=== PATIENT | male | born 1960 | race African-American/Black ===

== ENCOUNTER → 2016-11-11 | Outpatient (CLI) | payer BC ==
--- NOTE | 2016-11-11 16:56 | CR ---
EXAMINATION: Right shoulder HISTORY: Hypertension COMPARISON: None TECHNIQUE: 3 views FINDINGS/IMPRESSION: There is no acute osseous abnormality, dislocation, or fracture identified. Bon e mineralization and joint spaces appear normal.
== END ==
LOC: MW.CHIM 14:35
PROVIDERS: ATTEND Internal Medicine
DX: M25.511 Pain in right shoulder (principal); I10 Essential (primary) hypertension; K64.9 Unspecified hemorrhoids
CPT/HCPCS: 73030-26-RT; 73030-RT

== ENCOUNTER 2017-01-16 23:57 | Emergency (ER) | payer BC ==
--- NOTE | 2017-01-17 00:06 | EDM.PDOC ---
ED HPI GENERAL MEDICAL PROBLEM - General Chief Complaint: Abdominal Pain Stated Complaint: PT HAS STOMACH PAINS Time Seen by Provider: 01/17/17 00:03 - History of Present Illness INITIAL COMMENTS - FREE TEXT/NARRATIVE: HISTORY AND PHYSICAL: History of present illness: Patient 56-year-old male presents with concern of constipation or last 4 days his history of hemorrhoids he states he used a laxative with no improvement he denies fever chills nausea vomiting or other complaints Review of systems: As per history of present illness and below otherwise all systems reviewed and negative. Past medical history: As per history of present illness and as reviewed below otherwise noncontributory. Surgical history: As per history of present illness and as reviewed below otherwise noncontributory. Social history: No reported history of drug or alcohol abuse. Family history: As per history of present illness and as reviewed below otherwise noncontributory. Physical exam: HEENT: Atraumatic, normocephalic, pupils reactive, negative for conjunctival pallor or scleral icterus, mucous membranes moist, throat clear, neck supple, nontender, trachea midline. Lungs: Clear to auscultation, breath sounds equal bilaterally, chest nontender. Heart: S1S2, regular, negative for clicks, rubs, or JVD. Abdomen: Soft, nondistended, nontender. Negative for masses or hepatosplenomegaly. Negative for costovertebral tenderness. Pelvis: Stable nontender. Genitourinary: Deferred. Rectal: Deferred. Extremities: Atraumatic, negative for cords or calf pain. Neurovascular unremarkable. Neuro: Awake, alert, oriented. Cranial nerves II through XII unremarkable. Cerebellum unremarkable. Motor and sensory unremarkable throughout. Exam nonfocal. Diagnostics: CBC CMP CT abdomen and pelvis Therapeutics: None Impression: #1 constipation #2 history of hemorrhoids Definitive disposition and diagnosis as appropriate pending reevaluation and review of above. - Related Data Allergies Allergy/AdvReac Type Severity Reaction Status Date / Time No Known Allergies Allergy Verified 01/17/17 00:00 Home Meds: Home Meds Blood Pressure Med 04/25/16 [History] Cyclobenzaprine [Flexeril] 10 mg PO BID PRN #14 tablet 04/25/16 [Rx] Hydrocortisone [Proctosol-HC] 01/17/17 [History] Past Medical History HEENT History: Reports: Impaired Vision Cardiovascular History: Reports: Hypertension Respiratory History: Reports: None Gastrointestinal History: Reports: None Genitourinary History: Reports: None Musculoskeletal History: Reports: None Neurological History: Reports: None Psychiatric History: Reports: None Endocrine/Metabolic History: Reports: None Hematologic History: Reports: None Immunologic History: Reports: None Oncologic (Cancer) History: Reports: None Dermatologic History: Reports: None - Infectious Disease History Infectious Disease History: Reports: None - Past Surgical History Head Surgeries/Procedures: Reports: None HEENT Surgical History: Reports: None Cardiovascular Surgical History: Reports: None Respiratory Surgical History: Reports: None GI Surgical History: Reports: None Male Surgical History: Reports: None Endocrine Surgical History: Reports: None Neurological Surgical History: Reports: None Musculoskeletal Surgical History: Reports: None Dermatological Surgical History: Reports: None Social & Family History - Family History Family Medical History: Noncontributory - Tobacco Use Smoking Status *Q: Former Smoker Second Hand Smoke Exposure: No - Caffeine Use Caffeine Use: Reports: None - Recreational Drug Use Recreational Drug Use: No ED ROS GENERAL - Review of Systems Review Of Systems: ROS reveals no pertinent complaints other than HPI. ED EXAM, GENERAL - Physical Exam Exam: See Below (See dictation) Course - Vital Signs Last Recorded V/S: Last Vital Signs Temp 36.7 C 01/17/17 00:11 Pulse 78 01/17/17 00:11 Resp 20 01/17/17 00:11 BP 142/80 H 01/17/17 00:11 Pulse Ox 96 01/17/17 00:11 - Orders/Labs/Meds Orders: Active Orders 24 hr Category Date Time Status Abdomen Pelvis wo Cont [CT] Stat Exams 01/17/17 00:04 Ordered CBC WITH AUTO DIFF [HEME] Stat Lab 01/17/17 00:04 Ordered COMPREHENSIVE METABOLIC PN,CMP [CHEM] Stat Lab 01/17/17 00:04 Ordered Departure - Departure Time of Disposition: 00:39 Disposition: Against Medical Advice 07 Condition: Good Clinical Impression: Abdominal pain, Constipation - Discharge Information Forms: ED Department Discharge Additional Instructions: The following information is given to patients seen in the emergency department who are being discharged to home. This information is to outline your options for follow-up care. We provide all patients seen in our emergency department with a follow-up referral. The need for follow-up, as well as the timing and circumstances, are variable depending upon the specifics of your emergency department visit. If you don't have a primary care physician on staff, we will provide you with a referral. We always advise you to contact your personal physician following an emergency department visit to inform them of the circumstance of the visit and for follow-up with them and/or the need for any referrals to a consulting specialist. The emergency department will also refer you to a specialist when appropriate. This referral assures that you have the opportunity for followup care with a specialist. All of these measure are taken in an effort to provide you with optimal care, which includes your followup. Under all circumstances we always encourage you to contact your private physician who remains a resource for coordinating your care. When calling for followup care, please make the office aware that this follow-up is from your recent emergency room visit. If for any reason you are refused follow-up, please contact the [facility] emergency department at and asked to speak to the emergency department charge nurse. Follow-up primary medical doctor 1-2 days return as needed as discussed - My Orders Last 24 Hours: My Active Orders 01/17/17 00:04 Abdomen Pelvis wo Cont [CT] Stat CBC WITH AUTO DIFF [HEME] Stat COMPREHENSIVE METABOLIC PN,CMP [CHEM] Stat - Assessment/Plan Last 24 Hours: My Active Orders 01/17/17 00:04 Abdomen Pelvis wo Cont [CT] Stat CBC WITH AUTO DIFF [HEME] Stat COMPREHENSIVE METABOLIC PN,CMP [CHEM] Stat
[2017-01-17 00:19] VITALS: BP 142/80
== END 2017-01-17 00:43 | disposition left against medical advice (07) ==
LOC: MW.ED 23:57
DX: K59.00 Constipation, unspecified (principal); I10 Essential (primary) hypertension; Z87.891 Personal history of nicotine dependence
CPT/HCPCS: 99284; 99284-25

== ENCOUNTER 2019-10-07 19:14 | Emergency (ER) | payer BC ==
--- NOTE | 2019-10-07 20:21 | EDM.PDOC ---
ED HPI GENERAL MEDICAL PROBLEM - General Chief Complaint: General Stated Complaint: NOT FEELING WELL, BP, HEADACHE Time Seen by Provider: 10/07/19 20:21 Source of Information: Reports: Patient History Limitations: Reports: No Limitations - History of Present Illness INITIAL COMMENTS - FREE TEXT/NARRATIVE: HISTORY AND PHYSICAL: History of present illness: Patient is a 59-year-old male presents the ED with concern of generally not feeling well. Patient states that this evening around 6 PM he took his blood pressure medication on an empty stomach and states he felt like his heart was racing shortly afterwards. He denies chest pain, shortness of breath, dizziness , headache, nausea, vomiting, abdominal pain, diaphoresis. He states he felt like it may have been his blood pressure elevated although he did not have needs to take his blood pressure at home. He states his symptoms have since resolved and he has no complaints at this time. Patient does have history of hypertension and see's Dr. Zee for this. He does have a follow up with him in 1 month. BP is 167/88 Review of systems: As per history of present illness and below otherwise all systems reviewed and negative. Past medical history: As per history of present illness and as reviewed below otherwise noncontributory. Surgical history: As per history of present illness and as reviewed below otherwise noncontributory. Social history: No reported history of drug or alcohol abuse. Family history: As per history of present illness and as reviewed below otherwise noncontributory. Physical exam: General: Patient sitting comfortably in no acute distress and nontoxic appearing HEENT: Atraumatic, normocephalic, pupils reactive, negative for conjunctival pallor or scleral icterus, mucous membranes moist, throat clear, neck supple, nontender, trachea midline. No meningeal signs. Lungs: Clear to auscultation, breath sounds equal bilaterally, chest nontender. Heart: S1S2, regular, negative for clicks, rubs. Systolic murmur noted. Abdomen: Soft, nondistended, nontender. Negative for masses or hepatosplenomegaly. Negative for costovertebral tenderness. No rigidity, rebound , guarding. Pelvis: Stable nontender. Genitourinary: Deferred. Rectal: Deferred. Extremities: Atraumatic, negative for cords or calf pain. Neurovascular unremarkable. Neuro: Awake, alert, oriented. Cranial nerves II through XII unremarkable. Cerebellum unremarkable. Motor and sensory unremarkable throughout. Exam nonfocal. Notes: Patient aware of murmur and states he has had a work up for this including echo. EKG done in ED shows no acute ST-T wave changes, HR 83, and unchanged from prior EKG done last October. Diagnostics: EKG Patient declined labs Therapeutics: none Prescriptions: none Impression: Medical screening exam Plan: Follow up with primary care provider Return to ED as needed as discussed Definitive disposition and diagnosis as appropriate pending reevaluation and review of above. - Related Data Allergies Allergy/AdvReac Type Severity Reaction Status Date / Time ibuprofen Allergy Numbness Verified 10/07/19 19:47 Home Meds: Home Meds Losartan [Cozaar] 100 mg PO DAILY 10/07/19 [History] Rosuvastatin [Crestor] 10 mg PO DAILY 10/07/19 [History] amLODIPine [Norvasc] 5 mg PO BEDTIME 10/07/19 [History] Past Medical History HEENT History: Reports: Impaired Vision Cardiovascular History: Reports: High Cholesterol, Hypertension Respiratory History: Reports: None Gastrointestinal History: Reports: None Genitourinary History: Reports: None Musculoskeletal History: Reports: None Neurological History: Reports: None Psychiatric History: Reports: None Endocrine/Metabolic History: Reports: None Hematologic History: Reports: None Immunologic History: Reports: None Oncologic (Cancer) History: Reports: None Dermatologic History: Reports: None - Infectious Disease History Infectious Disease History: Reports: None - Past Surgical History Head Surgeries/Procedures: Reports: None HEENT Surgical History: Reports: Cataract Surgery Cardiovascular Surgical History: Reports: None Respiratory Surgical History: Reports: None GI Surgical History: Reports: None Male Surgical History: Reports: None Endocrine Surgical History: Reports: None Neurological Surgical History: Reports: None Musculoskeletal Surgical History: Reports: None Dermatological Surgical History: Reports: None Social & Family History - Family History Family Medical History: Noncontributory - Tobacco Use Smoking Status *Q: Never Smoker Second Hand Smoke Exposure: No - Caffeine Use Caffeine Use: Reports: None - Recreational Drug Use Recreational Drug Use: No ED ROS GENERAL - Review of Systems Review Of Systems: Comprehensive ROS is negative, except as noted in HPI. ED EXAM, GENERAL - Physical Exam Exam: See Below (see dictation) Course - Vital Signs Last Recorded V/S: Last Vital Signs Temp 96.9 F 10/07/19 19:40 Pulse 87 03/12/20 19:40 Resp 18 10/07/19 19:40 BP 167/88 H 10/07/19 19:40 Pulse Ox 97 10/07/19 19:40 Departure - Departure Time of Disposition: 20:24 Disposition: Home, Self-Care 01 Condition: Good Clinical Impression: Encounter for medical screening examination - Discharge Information Instructions: Medical Screening Exam Referrals: Anh Dobbs PA [Primary Care Provider] - Forms: ED Department Discharge Additional Instructions: The following information is given to patients seen in the emergency department who are being discharged to home. This information is to outline your options for follow-up care. We provide all patients seen in our emergency department with a follow-up referral. The need for follow-up, as well as the timing and circumstances, are variable depending upon the specifics of your emergency department visit. If you don't have a primary care physician on staff, we will provide you with a referral. We always advise you to contact your personal physician following an emergency department visit to inform them of the circumstance of the visit and for follow-up with them and/or the need for any referrals to a consulting specialist. The emergency department will also refer you to a specialist when appropriate. This referral assures that you have the opportunity for follow-up care with a specialist. All of these measure are taken in an effort to provide you with optimal care, which includes your follow-up. Under all circumstances we always encourage you to contact your private physician who remains a resource for coordinating your care. When calling for follow-up care, please make the office aware that this follow-up is from your recent emergency room visit. If for any reason you are refused follow-up, please contact the [facility] Emergency Department at and asked to speak to the emergency department charge nurse. [facility] [address] [place] [id number] [id number] Follow up with primary care provider Return to ED As needed as discussed Sepsis Event Note - Evaluation Sepsis Screening Result: No Definite Risk - Focused Exam Vital Signs: Vital Signs Temp Pulse Resp BP Pulse Ox 10/07/19 19:40 96.9 F 87 18 167/88 H 97 Date Exam was Performed: 10/07/19 Time Exam was Performed: 20:41
[2019-10-07 20:52] VITALS: BP 150/79; PULSE 83
== END 2019-10-07 20:30 | disposition home or self-care (01) ==
LOC: MW.ED 19:14
DX: Z00.00 Encounter for general adult medical examination without abnormal findings (principal); E78.00 Pure hypercholesterolemia, unspecified; I10 Essential (primary) hypertension; Z79.899 Other long term (current) drug therapy
CPT/HCPCS: 93005; 99283-25

== ENCOUNTER 2020-08-18 20:47 | Emergency (ER) | payer BC ==
[2020-08-18 21:05] VITALS: PULSE 76
[2020-08-18] MEDS ORDERED: Sodium Chloride 0.9% 10 ML Syringe FLUSH PRN (21:06)
[2020-08-18] MEDS ORDERED: Sodium Chloride 0.9% 2.5 ML Syringe FLUSH PRN (21:06)
--- NOTE | 2020-08-18 21:06 | EDM.PDOC ---
<Edwin Johnson - Last Filed: 08/18/20 22:50> ED HPI GENERAL MEDICAL PROBLEM - General Chief Complaint: Chest Pain Stated Complaint: CHEST PAIN/FAST HEAR BEAT Time Seen by Provider: 08/18/20 21:05 - Related Data Allergies Allergy/AdvReac Type Severity Reaction Status Date / Time ibuprofen Allergy Numbness Verified 10/07/19 19:47 Home Meds: Home Meds Losartan [Cozaar] 100 mg PO DAILY 10/07/19 [History] Rosuvastatin [Crestor] 10 mg PO DAILY 10/07/19 [History] amLODIPine [Norvasc] 5 mg PO BEDTIME 10/07/19 [History] Departure - Departure Time of Disposition: 22:51 Disposition: Home, Self-Care 01 Condition: Good Clinical Impression: Palpitations Instructions: Palpitations Referrals: Anh Dobbs PA [Primary Care Provider] - 3 Days Forms: ED Department Discharge Additional Instructions: The following information is given to patients seen in the emergency department who are being discharged to home. This information is to outline your options for follow-up care. We provide all patients seen in our emergency department with a follow-up referral. The need for follow-up, as well as the timing and circumstances, are variable depending upon the specifics of your emergency department visit. If you don't have a primary care physician on staff, we will provide you with a referral. We always advise you to contact your personal physician following an emergency department visit to inform them of the circumstance of the visit and for follow-up with them and/or the need for any referrals to a consulting s pecialist. The emergency department will also refer you to a specialist when appropriate. This referral assures that you have the opportunity for follow-up care with a specialist. All of these measure are taken in an effort to provide you with optimal care, which includes your follow-up. Under all circumstances we always encourage you to contact your private physician who remains a resource for coordinating your care. When calling for follow-up care, please make the office aware that this follow-up is from your recent emergency room visit. If for any reason you are refused follow-up, please contact the [facility] Emergency Department at and asked to speak to the emergency department charge nurse. <Jennifer Nogueira E - Last Filed: 08/19/20 09:55> ED HPI GENERAL MEDICAL PROBLEM - General Source of Information: Reports: Patient History Limitations: Reports: No Limitations - History of Present Illness INITIAL COMMENTS - FREE TEXT/NARRATIVE: HISTORY AND PHYSICAL: History of present illness: Patient is a 60-year-old -[place] male who presents to the ED with complaints of "a racing heart". He states that this happens whenever he takes his blood pressure pill, with the most recent dose being this afternoon. He denies any type of activity causing these episodes. He denies chest pain, shortness of breath, or dizziness with these episodes. Patient denies any fever, chills, headache, change in vision, syncope or near syncope. Denies any abdominal pain, nausea, vomiting, diarrhea, constipation or dysuria. Patient has been eating and drinking appropriately. Review of systems: As per history of present illness and below otherwise all systems reviewed and negative. Past medical history: As per history of present illness and as reviewed below otherwise noncontribut ory. Surgical history: As per history of present illness and as reviewed below otherwise noncontributory. Social history: See social history for further information Family history: As per history of present illness and as reviewed below otherwise noncontributory. Physical exam: General: Well developed and well nourished. Alert and orientated x 3. Nontoxic in appearance and in no acute distress. Vital signs are stable and have been reviewed by me. Nursing notes were reviewed. HEENT: Atraumatic, normocephalic, pupils equal and reactive bilaterally, negative for conjunctival pallor or scleral icterus, mucous membranes moist, trachea midline. No drooling or trismus noted. No meningeal signs. No hot potato voice noted. Lungs: Clear to auscultation bilaterally. No wheezes, rales, or rhonchi. Chest nontender. Normal work of breathing, no accessory muscles used. Heart: S1S2, regular rate and rhythm with murmur. Pt is aware he has a murmur. No gallops, or rubs. No JVD. No peripheral edema Abdomen: Soft, nondistended, nontender. Normoactive bowel sounds. Negative for masses or costovertebral tenderness.. Skin: Intact, warm, dry. No lesions or rashes noted. Hematologic: No petechiae or purpra. Mucosa appropriate color and normal nail bed color and refill. Extremities: Atraumatic, moves all extremities per self without difficulty or deficits, negative for cords or calf pain. Neurovascular unremarkable. Neuro: Awake, alert, oriented. Cranial nerves II through XII unremarkable. Cerebellum unremarkable. Motor and sensory unremarkable throughout. Exam nonfocal. Psychiatric: Mood and affect are appropriate. Normal thought process. Answering questions appropriately. Notes: *This patient was seen and evaluated during the 2019 SARS-CoV-2 novel coronavirus pandemic period. Community viral transmission is ongoing at time of this encounter and the emergency department is operating under pandemic response procedures. Patient was seen in ED on 09/2019 for similar symptoms. He had a full work-up at that time which was unremarkable. 2199: Lab results are is still pending at this time. Patient care has been handed over to Dr Johnson who is aware of this patient and will fo llow/disposition appropriately. Diagnostics: CBC, CMP, Troponin, EKG, TSH Therapeutics: None Prescription: None Impression: Encounter for medical screening exam Palpitations Definitive disposition and diagnosis as appropriate pending reevaluation and review of above. Mid-Sternal Chest Pain Score (Numeric/FACES): 5 Past Medical History HEENT History: Reports: Impaired Vision Cardiovascular History: Reports: High Cholesterol, Hypertension Respiratory History: Reports: None Gastrointestinal History: Reports: None Genitourinary History: Reports: None Musculoskeletal History: Reports: None Neurological History: Reports: None Psychiatric History: Reports: None Endocrine/Metabolic History: Reports: None Hematologic History: Reports: None Immunologic History: Reports: None Oncologic (Cancer) History: Reports: None Dermatologic History: Reports: None - Infectious Disease History Infectious Disease History: Reports: None - Past Surgical History Head Surgeries/Procedures: Reports: None HEENT Surgical History: Reports: Cataract Surgery Cardiovascular Surgical History: Reports: None Respiratory Surgical History: Reports: None GI Surgical History: Reports: None Male Surgical History: Reports: None Endocrine Surgical History: Reports: None Neurological Surgical History: Reports: None Musculoskeletal Surgical History: Reports: None Dermatological Surgical History: Reports: None Social & Family History - Family History Family Medical History: No Pertinent Family History - Caffeine Use Caffeine Use: Reports: None ED ROS GENERAL - Review of Systems Review Of Systems: Comprehensive ROS is negative, except as noted in HPI. ED EXAM, GENERAL - Physical Exam Exam: See Below (See dictation) Course - Vital Signs Last Recorded V/S: Last Vital Signs Temp 97 F 08/18/20 23:04 Pulse 76 08/18/20 23:04 Resp 16 08/18/20 23:04 BP 135/80 08/18/20 23:04 Pulse Ox 98 08/18/20 23:04 - Orders/Labs/Meds Orders: Active Orders 24 hr Category Date Time Status Saline Lock Insert [OM.PC] Stat Oth 08/18/20 21:06 Ordered Labs: Laboratory Tests 08/18/20 08/18/20 Range/Units 21:33 21:33 WBC 5.98 (4.0-11.0) K/uL RBC 4.41 L (4.50-5.90) M/uL Hgb 10.5 L (13.0-17.0) g/dL Hct 34.1 L (38.0-50.0) % MCV 77.3 L (80.0-98.0) fL MCH 23.8 L (27.0-32.0) pg MCHC 30.8 L (31.0-37.0) g/dL RDW Std Deviation 46.3 (28.0-62.0) fl RDW Coeff of Daniel 17 H (11.0-15.0) % Plt Count 211 (150-400) K/uL MPV 10.50 (7.40-12.00) fL Neut % (Auto) 29.1 L (48.0-80.0) % Lymph % (Auto) 50.0 H (16.0-40.0) % [place] % (Auto) 12.9 (0.0-15.0) % Eos % (Auto) 7.0 (0.0-7.0) % Baso % (Auto) 1.0 (0.0-1.5) % Neut # (Auto) 1.7 (1.4-5.7) K/uL Lymph # (Auto) 3.0 H (0.6-2.4) K/uL [place] # (Auto) 0.8 (0.0-0.8) K/uL Eos # (Auto) 0.4 (0.0-0.7) K/uL Baso # (Auto) 0.1 (0.0-0.1) K/uL Nucleated RBC % 0.0 /100WBC Nucleated RBCs # 0 K/uL Sodium 139 (136-148) mmol/L Potassium 3.6 (3.5-5.1) mmol/L Chloride 103 (98-107) mmol/L Carbon Dioxide 27.5 (21.0-32.0) mmol/L BUN 10 (7.0-18.0) mg/dL Creatinine 1.0 (0.8-1.3) mg/dL Est Cr Clr Drug Dosing 67.42 mL/min Estimated GFR (MDRD) > 60.0 ml/min Glucose 98 (74-106) mg/dL Calcium 9.1 (8.5-10.1) mg/dL Total Bilirubin 0.5 (0.2-1.0) mg/dL AST 35 (15-37) IU/L ALT 43 (14-63) IU/L Alkaline Phosphatase 100 (46-116) U/L Troponin I < 0.050 (0.000-0.056) ng/mL Total Protein 8.4 H (6.4-8.2) g/dL Albumin 4.0 (3.4-5.0) g/dL Globulin 4.4 H (2.6-4.0) g/dL Albumin/Globulin Ratio 0.9 (0.9-1.6) TSH 3rd Generation 0.92 (0.36-3.74) uIU/mL Meds: Medications Discontinued Medications Generic Name Dose Route Start Last Admin Trade Name Freq PRN Reason Stop Dose Admin Sodium Chloride 10 ml 08/18/20 21:06 Saline Flush FLUSH ASDIRECTED PRN Keep Vein Open Sodium Chloride 2.5 ml 08/18/20 21:06 Saline Flush FLUSH ASDIRECTED PRN Keep Vein Open Sepsis Event Note (ED) - Evaluation Sepsis Screening Result: No Definite Risk - Focused Exam Vital Signs: Vital Signs Temp Pulse Resp BP Pulse Ox 08/18/20 23:04 97 F 76 16 135/80 98 - My Orders Last 24 Hours: My Active Orders 08/18/20 21:06 Saline Lock Insert [OM.PC] Stat - Assessment/Plan Last 24 Hours: My Active Orders 08/18/20 21:06 Saline Lock Insert [OM.PC] Stat
--- NOTE | 2020-08-18 21:38 | CR ---
INDICATION: Chest pain TECHNIQUE: Chest radiograph 1 view COMPARISON: 10/03/2017 FINDINGS: Mediastinum: The mediastinum is normal in appearance. Mild stable cardiomegaly noted. Lung: Both lungs are unremarkable in appearance. No sign of pleural effusion seen. No pneumothorax is identified. Bone and Soft tissue: Unremarkable for age. IMPRESSION: 1. No acute cardiopulmonary disease is seen. 2. Mild stable cardiomegaly noted. Dictated by: Basil Bazan MD @ 08/18/2020 21:37:11 (Electronically Signed)
--- NOTE | 2020-08-18 22:00 | PCM.SN.2 ---
- Free Text/Narrative Note: 60yoM presenting with palpitations after taking his HTN medication. Pt took it yesterday and developed palpitations, took it again today and had symptoms. Never chest pain or SOB. EKG without acute ischemia. EKG obtained at 2058 and interpreted by myself in real-time shows sinus rhythm with a rate of 76 there is a nonspecific ventricular conduction delay there is no acute ischemia QTC is 419 [id number]: Patient asymptomatic at this time labs are unremarkable we discussed avoiding that blood pressure medication and following up with his doctor regarding a different medication regimen.
[2020-08-18 22:09] LABS: BLOOD UREA NITROGEN,BUN 10 mg/dL (7.0-18.0); CARBON DIOXIDE,CO2 27.5 mmol/L (21.0-32.0); CHLORIDE,CL 103 mmol/L (98-107); GLUCOSE RANDOM 98 mg/dL (74-106); POTASSIUM,K 3.6 mmol/L (3.5-5.1); SODIUM,NA 139 mmol/L (136-148)
[2020-08-18 23:24] VITALS: BP 135/80
== END 2020-08-18 23:04 | disposition home or self-care (01) ==
LOC: MW.ED 20:47
DX: R00.2 Palpitations (principal); E78.00 Pure hypercholesterolemia, unspecified; I10 Essential (primary) hypertension; Z79.899 Other long term (current) drug therapy; Z88.6 Allergy status to analgesic agent
CPT/HCPCS: 36415; 71045; 71045-26; 80053; 84443; 84484; 85025; 93005; 93010; 99283; 99285-25

== ENCOUNTER 2021-04-07 15:53 | Emergency (ER) | payer BC ==
[2021-04-07] MEDS ORDERED: Sodium Chloride 0.9% 10 ML Syringe FLUSH PRN (16:45)
[2021-04-07] MEDS ORDERED: Sodium Chloride 0.9% 2.5 ML Syringe FLUSH PRN (16:45)
[2021-04-07] MEDS ORDERED: Sodium Chloride 0.9% 1,000 ML IV ONE (16:45)
--- NOTE | 2021-04-07 17:08 | EDM.PDOC ---
ED HPI GENERAL MEDICAL PROBLEM - General Chief Complaint: Chest Pain Stated Complaint: CHEST PAINS Time Seen by Provider: 04/07/21 16:32 Source of Information: Reports: Patient History Limitations: Reports: No Limitations - History of Present Illness INITIAL COMMENTS - FREE TEXT/NARRATIVE: HISTORY AND PHYSICAL: History of present illness: The patient is a 52-year-old male who presents to the emergency department with complaints of upper chest pain near the axilla area that started yesterday. The patient states that on he was working outside in the hot sun and just felt weak and fatigued and required to go home. Yesterday Friday he still felt ill and had some chest pain. Again today he still feels weak and had chest pain and presented to the emergency department. He denies shortness of breath, nausea, vomiting. He stated yesterday he had a bruise and told dizziness but none today. The patient's pain is not reducible. The patient states that he had a similar episode to this 1 to 2 years ago and was worked up by a auto porter, who told him that everything was normal. Patient denies any fever, chills, headache, change in vision, syncope or near syncope. Denies any back pain or cough. Denies any abdominal pain, nausea, vomiting, diarrhea, constipation or dysuria. Has not noted any blood in urine or stool. Patient has been eating and drinking appropriately. Review of systems: As per history of present illness and below otherwise all systems reviewed and negative. Past medical history: As per history of present illness and as reviewed below otherwise noncontributory. Surgical history: As per history of present illness and as reviewed below otherwise noncontributory. Social history: See social history for further information Family history: As per history of present illness and as reviewed below otherwise noncontributory. Physical exam: General: Well developed and well nourished. Alert and orientated x 3. Nontoxic in appearance and in no acute distress. Vital signs are stable and have been reviewed by me. Nursing notes were reviewed. HEENT: Atraumatic, normocephalic, pupils equal and reactive bilaterally, negative for conjunctival pallor or scleral icterus, mucous membranes moist, TMs normal bilaterally, throat clear, neck supple, nontender, trachea midline. No drooling or trismus noted. No meningeal signs. No hot potato voice noted. Lungs: Clear to auscultation bilaterally. No wheezes, rales, or rhonchi. Chest nontender. Normal work of breathing, no accessory muscles used. Heart: S1S2, regular rate and rhythm without overt murmur, gallops, or rubs. No JVD. No peripheral edema Abdomen: Soft, nondistended, nontender. Normoactive bowel sounds. Negative for masses or costovertebral tenderness. Skin: Intact, warm, dry. No lesions or rashes noted. Hematologic: No petechiae or purpra. Mucosa appropriate color and normal nail bed color and refill. Extremities: Atraumatic, moves all extremities per self without difficulty or deficits, negative for cords or calf pain. Neurovascular unremarkable. Neuro: Awake, alert, oriented. Cranial nerves II through XII unremarkable. Cerebellum unremarkable. Motor and sensory unremarkable throughout. Exam nonfocal. Psychiatric: Mood and affect are appropriate. Normal thought process. Answering questions appropriately. Notes: *This patient was seen and evaluated during the 2019 SARS-CoV-2 novel coronavirus pandemic period. Community viral transmission is ongoing at time of this encounter and the emergency department is operating under pandemic response procedures. As stated above the patient is a 60-year-old male who presents with right upper chest pain that started yesterday. The patient states the pain comes and goes. The patient states that he feels like he is just been out in the heat too much. After exam and discussion I have ordered a CBC, CMP, troponin, EKG, chest x-ray, IV fluids. The patient did not want to stay at first and only wanted to have his blood drawn and then a phone call. I discussed the need for the patient to stay and he consented. The patient's CBC is significant for hemoglobin of 12.9, MCV 77.6, MCH C is 32.2. INR 1.13 the patient's CMP is significant for an AST of 41 total protein of 8.4 the patient's troponin is <0.050. I advised the patient to stay for a serial troponin and he declined. The patient states that he just thinks he needs 3 days off of work. I have consented to write a note for his work. I have advised the patient to see his primary care and follow-up with a auto porter. The patient states he will. I advised the patient to return to the urgency department if he has any further chest pain, dizziness, or feelings of weakness. I have talked with the patient about today's findings, in addition to providing specific details for plan of care. Reassessment at the time of disposition demonstrates that the patient is in no acute distress. The patient is stable for discharge, counseling was provided and we discussed in great detail signs and symptoms that would prompt them to return to the Emergency Department. Medication, follow up and supportive care measures were reviewed and discussed. Voices understanding and is agreeable to plan of care. Denies any further questions or concerns at this time. Diagnostics:CBC, CMP, troponin, EKG, chest x-ray Therapeutics: IV fluids Impression: Chest Pain Plan: 1. You were evaluated today on an emergent basis. Your right upper chest pain was evaluated with blood work which was normal, your chest x-ray was normal, and your EKG did not have any changes. I offered to repeat your cardiac enzyme to ensure there was no elevation happening and you declined wanting to go home. If you have any further chest pain please return to the emergency department immediately. Need to follow-up with your primary care and possibly do a repeat auto porter visit for a further work-up. I will give you a note to have 3 days off of work for rest. 2. You can alternate Tylenol and ibuprofen as needed for pain and fever management. 3. We encourage you to follow up with your primary care provider and/or recommended specialist in the next few days for re-evaluation and further care/management. 4. If your symptoms should worsen, new symptoms develop or any of the signs and symptoms we discussed should arise please return to the emergency room or call 911 (if needed). Definitive disposition and diagnosis as appropriate pending reevaluation and review of above. chest Pain Score (Numeric/FACES): 8 - Related Data Allergies Allergy/AdvReac Type Severity Reaction Status Date / Time No Known Allergies Allergy Verified 04/07/21 16:00 Home Meds: Home Meds Losartan [Cozaar] 100 mg PO DAILY 10/07/19 [History] Rosuvastatin [Crestor] 10 mg PO DAILY 10/07/19 [History] amLODIPine [Norvasc] 5 mg PO BEDTIME 10/07/19 [History] Past Medical History HEENT History: Reports: Impaired Vision Cardiovascular History: Reports: High Cholesterol, Hypertension Respiratory History: Reports: None Gastrointestinal History: Reports: None Genitourinary History: Reports: None Musculoskeletal History: Reports: None Neurological History: Reports: None Psychiatric History: Reports: None Endocrine/Metabolic History: Reports: None Hematologic History: Reports: None Immunologic History: Reports: None Oncologic (Cancer) History: Reports: None Dermatologic History: Reports: None - Infectious Disease History Infectious Disease History: Reports: None - Past Surgical History Head Surgeries/Procedures: Reports: None HEENT Surgical History: Reports: Cataract Surgery Cardiovascular Surgical History: Reports: None Respiratory Surgical History: Reports: None GI Surgical History: Reports: None Male Surgical History: Reports: None Endocrine Surgical History: Reports: None Neurological Surgical History: Reports: None Musculoskeletal Surgical History: Reports: None Dermatological Surgical History: Reports: None Social & Family History - Family History Family Medical History: No Pertinent Family History - Tobacco Use Tobacco Use Status *Q: Never Tobacco User Second Hand Smoke Exposure: No - Caffeine Use Caffeine Use: Reports: None - Recreational Drug Use Recreational Drug Use: No ED ROS GENERAL - Review of Systems Review Of Systems: Comprehensive ROS is negative, except as noted in HPI. ED EXAM, GENERAL - Physical Exam Exam: See Below (See dictation) Course - Vital Signs Last Recorded V/S: Last Vital Signs Temp 96.8 F L 04/07/21 15:56 Pulse 69 04/07/21 17:52 Resp 17 04/07/21 17:52 BP 157/83 H 04/07/21 17:52 Pulse Ox 100 04/07/21 17:52 - Orders/Labs/Meds Orders: Active Orders 24 hr Category Date Time Status Saline Lock Insert [OM.PC] Stat Oth 04/07/21 16:45 Ordered Labs: Laboratory Tests 04/07/21 04/07/21 04/07/21 Range/Units 16:10 16:10 16:10 WBC 5.21 (4.0-11.0) K/uL RBC 5.00 (4.50-5.90) M/uL Hgb 12.9 L (13.0-17.0) g/dL Hct 38.8 (38.0-50.0) % MCV 77.6 L (80.0-98.0) fL MCH 25.8 L (27.0-32.0) pg MCHC 33.2 (31.0-37.0) g/dL RDW Std Deviation 46.6 (28.0-62.0) fl RDW Coeff of Daniel 17 H (11.0-15.0) % Plt Count 176 (150-400) K/uL MPV 11.20 (7.40-12.00) fL Neut % (Auto) 28.9 L (48.0-80.0) % Lymph % (Auto) 50.3 H (16.0-40.0) % [place] % (Auto) 12.3 (0.0-15.0) % Eos % (Auto) 7.5 H (0.0-7.0) % Baso % (Auto) 1.0 (0.0-1.5) % Neut # (Auto) 1.5 (1.4-5.7) K/uL Lymph # (Auto) 2.6 H (0.6-2.4) K/uL [place] # (Auto) 0.6 (0.0-0.8) K/uL Eos # (Auto) 0.4 (0.0-0.7) K/uL Baso # (Auto) 0.1 (0.0-0.1) K/uL Nucleated RBC % 0.0 /100WBC Nucleated RBCs # 0 K/uL INR 1.13 Sodium 142 (136-148) mmol/L Potassium 3.8 (3.5-5.1) mmol/L Chloride 104 (98-107) mmol/L Carbon Dioxide 29.1 (21.0-32.0) mmol/L BUN 9 (7.0-18.0) mg/dL Creatinine 1.1 (0.8-1.3) mg/dL Est Cr Clr Drug Dosing 61.29 mL/min Estimated GFR (MDRD) > 60.0 ml/min Glucose 93 (74-106) mg/dL Calcium 8.6 (8.5-10.1) mg/dL Total Bilirubin 0.7 (0.2-1.0) mg/dL AST 41 H (15-37) IU/L ALT 61 (14-63) IU/L Alkaline Phosphatase 99 (46-116) U/L Troponin I < 0.050 (0.000-0.056) ng/mL Total Protein 8.4 H (6.4-8.2) g/dL Albumin 4.0 (3.4-5.0) g/dL Globulin 4.4 H (2.6-4.0) g/dL Albumin/Globulin Ratio 0.9 (0.9-1.6) Meds: Medications Discontinued Medications Generic Name Dose Route Start Last Admin Trade Name Robertq PRN Reason Stop Dose Admin Sodium Chloride 1,000 mls @ 999 mls/hr 04/07/21 16:45 04/07/21 16:52 Normal Saline IV 04/07/21 17:45 999 mls/hr BOLUS ONE Administration Sodium Chloride 10 ml 04/07/21 16:45 04/07/21 16:53 Sodium Chloride 0.9% 10 Ml Syringe FLUSH 10 ml ASDIRECTED PRN Administration Keep Vein Open Sodium Chloride 2.5 ml 04/07/21 16:45 04/07/21 16:53 Sodium Chloride 0.9% 2.5 Ml Syringe FLUSH 2.5 ml ASDIRECTED PRN Administration Keep Vein Open Departure - Departure Time of Disposition: 17:40 Disposition: Home, Self-Care 01 Condition: Good Clinical Impression: Chest pain Qualifiers: Chest pain type: unspecified Qualified Code(s): R07.9 - Chest pain, unspecified Instructions: Nonspecific Chest Pain, Adult Referrals: PCP,None [Primary Care Provider] - Forms: ED Department Discharge Additional Instructions: The following information is given to patients seen in the emergency department who are being discharged to home. This information is to outline your options for follow-up care. We provide all patients seen in our emergency department with a follow-up referral. The need for follow-up, as well as the timing and circumstances, are variable depending upon the specifics of your emergency department visit. If you don't have a primary care physician on staff, we will provide you with a referral. We always advise you to contact your personal physician following an emergency department visit to inform them of the circumstance of the visit and for follow-up with them and/or the need for any referrals to a consulting specialist. The emergency department will also refer you to a specialist when appropriate. This referral assures that you have the opportunity for follow-up care with a specialist. All of these measure are taken in an effort to provide you with optimal care, which includes your follow-up. Under all circumstances we always encourage you to contact your private physician who remains a resource for coordinating your care. When calling for follow-up care, please make the office aware that this follow-up is from your recent emergency room visit. If for any reason you are refused follow-up, please contact the [facility] Emergency Department at and asked to speak to the emergency department charge nurse. [facility] [address] [place] [address] [facility] [address] [place] [id number] Plan: 1. You were evaluated today on an emergent basis. Your right upper chest pain was evaluated with blood work which was normal, your chest x-ray was normal, and your EKG did not have any changes. I offered to repeat your cardiac enzyme to ensure there was no elevation happening and you declined wanting to go home. If you have any further chest pain please return to the emergency department immediately. Need to follow-up with your primary care and possibly do a repeat auto porter visit for a further work-up. I will give you a note to have 3 days off of work for rest. 2. You can alternate Tylenol and ibuprofen as needed for pain and fever management. 3. We encourage you to follow up with your primary care provider and/or recommended specialist in the next few days for re-evaluation and further care/management. 4. If your symptoms should worsen, new symptoms develop or any of the signs and symptoms we discussed should arise please return to the emergency room or call 911 (if needed). Sepsis Event Note (ED) - Evaluation Sepsis Screening Result: No Definite Risk - Focused Exam Vital Signs: Vital Signs Temp Pulse Resp BP Pulse Ox 04/07/21 17:52 69 17 157/83 H 100 04/07/21 15:56 96.8 F L 74 18 153/80 H 98 - My Orders Last 24 Hours: My Active Orders 04/07/21 16:45 Saline Lock Insert [OM.PC] Stat - Assessment/Plan Last 24 Hours: My Active Orders 04/07/21 16:45 Saline Lock Insert [OM.PC] Stat
[2021-04-07 17:11] LABS: BLOOD UREA NITROGEN,BUN 9 mg/dL (7.0-18.0); CARBON DIOXIDE,CO2 29.1 mmol/L (21.0-32.0); CHLORIDE,CL 104 mmol/L (98-107); GLUCOSE RANDOM 93 mg/dL (74-106); POTASSIUM,K 3.8 mmol/L (3.5-5.1); SODIUM,NA 142 mmol/L (136-148)
--- NOTE | 2021-04-07 17:31 | CR ---
INDICATION: Chest pain TECHNIQUE: Single AP view COMPARISON: 08/18/2020 FINDINGS: The cardiomediastinal contours are unchanged. No new focal or diffuse pulmonary opacities. No definite pneumothorax or pleural effusion. The bones are unchanged. IMPRESSION: No acute pulmonary process. Dictated by Murtaza Jarvis MD @ 04/07/2021 5:19:08 PM (Electronically Signed)
[2021-04-07 17:53] VITALS: BP 157/83; PULSE 69
--- NOTE | 2021-04-07 19:44 | PCM.EKG ---
#1 Interpretation EKG Date: 04/07/21 Time: 15:57 Rhythm: NSR Rate (Beats/Min): 75 [place]: LAD-Left [place] Deviation P-Wave: Present QRS: Normal ST-T: Normal QT: Normal Comparison: No Change (04/07/21) EKG Interpretation Comments: Sinus Rhythm with LAD and U waves
== END 2021-04-07 17:53 | disposition home or self-care (01) ==
LOC: MW.ED 15:53
DX: R07.9 Chest pain, unspecified (principal); E78.00 Pure hypercholesterolemia, unspecified; I10 Essential (primary) hypertension; Z79.899 Other long term (current) drug therapy
CPT/HCPCS: 36415; 71045; 80053; 84484; 85025; 85610; 93005; 99285; J7030

== ENCOUNTER 2021-06-01 17:34 | Emergency (ER) | payer BC ==
--- NOTE | 2021-06-01 18:22 | PCM.EKG ---
#1 Interpretation EKG Interpretation Comments: EKG done 06/01/2021 at 6:15 PM shows sinus rhythm heart rate 72 [place] 151 [place] -37 there is abnormal R wave progression but otherwise normal EKG impression normal EKG
[2021-06-01 19:55] LABS: BLOOD UREA NITROGEN,BUN 8 mg/dL (7.0-18.0); CARBON DIOXIDE,CO2 28.3 mmol/L (21.0-32.0); CHLORIDE,CL 103 mmol/L (98-107); GLUCOSE RANDOM 103 mg/dL (74-106); POTASSIUM,K 3.7 mmol/L (3.5-5.1); SODIUM,NA 144 mmol/L (136-148)
--- NOTE | 2021-06-01 20:10 | EDM.PDOC ---
ED HPI GENERAL MEDICAL PROBLEM - General Chief Complaint: Chest Pain Stated Complaint: DIZZY Time Seen by Provider: 06/01/21 20:03 Source of Information: Reports: Patient History Limitations: Reports: No Limitations - History of Present Illness INITIAL COMMENTS - FREE TEXT/NARRATIVE: 52-year-old male past medical history hypertension presents for multiple complaints. Patient states that over the last week he has had on and off episodes of dizziness associated with a generalized headache. Denies one-sided body weakness, changes in vision. He also notes occasional chest pains worse with exertion and shortness of breath when he is ambulating quickly or long distances. - Related Data Allergies Allergy/AdvReac Type Severity Reaction Status Date / Time No Known Allergies Allergy Verified 04/07/21 16:00 Home Meds: Home Meds Losartan [Cozaar] 100 mg PO DAILY 10/07/19 [History] Rosuvastatin [Crestor] 10 mg PO DAILY 10/07/19 [History] amLODIPine [Norvasc] 5 mg PO BEDTIME 10/07/19 [History] Past Medical History HEENT History: Reports: Impaired Vision Cardiovascular History: Reports: High Cholesterol, Hypertension Respiratory History: Reports: None Gastrointestinal History: Reports: None Genitourinary History: Reports: None Musculoskeletal History: Reports: None Neurological History: Reports: None Psychiatric History: Reports: None Endocrine/Metabolic History: Reports: None Hematologic History: Reports: None Immunologic History: Reports: None Oncologic (Cancer) History: Reports: None Dermatologic History: Reports: None - Infectious Disease History Infectious Disease History: Reports: None - Past Surgical History Head Surgeries/Procedures: Reports: None HEENT Surgical History: Reports: Cataract Surgery Cardiovascular Surgical History: Reports: None Respiratory Surgical History: Reports: None GI Surgical History: Reports: None Male Surgical History: Reports: None Endocrine Surgical History: Reports: None Neurological Surgical History: Reports: None Musculoskeletal Surgical History: Reports: None Dermatological Surgical History: Reports: None Social & Family History - Family History Family Medical History: No Pertinent Family History - Caffeine Use Caffeine Use: Reports: None ED ROS GENERAL - Review of Systems Review Of Systems: Comprehensive ROS is negative, except as noted in HPI. ED EXAM, GENERAL - Physical Exam Exam: See Below Exam Limited By: No Limitations General Appearance: Alert, WD/WN, No Apparent Distress Ears: Hearing Grossly Normal Throat/Mouth: Normal Voice, No Airway Compromise Head: Atraumatic, Normocephalic Respiratory/Chest: No Respiratory Distress, Lungs Clear, Normal Breath Sounds, No Accessory Muscle Use Cardiovascular: Normal Peripheral Pulses, Regular Rate, Rhythm, No Edema Back Exam: Normal Inspection Extremities: Normal Inspection Neurological: Alert, Oriented, CN II-XII Intact, Normal Cognition, Normal Gait, No Motor/Sensory Deficits Psychiatric: Normal Affect, Normal Mood Skin Exam: Warm, Dry, Intact, Normal Color Course - Vital Signs Last Recorded V/S: Last Vital Signs Temp 97.5 F 06/01/21 18:17 Pulse 99 06/01/21 18:17 Resp 18 06/01/21 18:17 BP 166/83 H 06/01/21 18:17 Pulse Ox 99 06/01/21 18:17 - Orders/Labs/Meds Orders: Active Orders 24 hr Category Date Time Status Chest 1V Frontal [CR] Stat Exams 06/01/21 19:16 Taken Labs: Laboratory Tests 06/01/21 06/01/21 Range/Units 19:27 19:27 WBC 5.72 (4.0-11.0) K/uL RBC 4.62 (4.50-5.90) M/uL Hgb 11.5 L (13.0-17.0) g/dL Hct 35.5 L (38.0-50.0) % MCV 76.8 L (80.0-98.0) fL MCH 24.9 L (27.0-32.0) pg MCHC 32.4 (31.0-37.0) g/dL RDW Std Deviation 44.2 (28.0-62.0) fl RDW Coeff of Daniel 16 H (11.0-15.0) % Plt Count 247 (150-400) K/uL MPV 10.70 (7.40-12.00) fL Neut % (Auto) 37.8 L (48.0-80.0) % Lymph % (Auto) 44.9 H (16.0-40.0) % [place] % (Auto) 10.8 (0.0-15.0) % Eos % (Auto) 5.6 (0.0-7.0) % Baso % (Auto) 0.9 (0.0-1.5) % Neut # (Auto) 2.2 (1.4-5.7) K/uL Lymph # (Auto) 2.6 H (0.6-2.4) K/uL [place] # (Auto) 0.6 (0.0-0.8) K/uL Eos # (Auto) 0.3 (0.0-0.7) K/uL Baso # (Auto) 0.1 (0.0-0.1) K/uL Nucleated RBC % 0.0 /100WBC Nucleated RBCs # 0 K/uL Sodium 144 (136-148) mmol/L Potassium 3.7 (3.5-5.1) mmol/L Chloride 103 (98-107) mmol/L Carbon Dioxide 28.3 (21.0-32.0) mmol/L BUN 8 (7.0-18.0) mg/dL Creatinine 1.0 (0.8-1.3) mg/dL Est Cr Clr Drug Dosing 67.42 mL/min Estimated GFR (MDRD) > 60.0 ml/min Glucose 103 (74-106) mg/dL Calcium 9.2 (8.5-10.1) mg/dL Total Bilirubin 0.6 (0.2-1.0) mg/dL AST 55 H (15-37) IU/L ALT 71 H (14-63) IU/L Alkaline Phosphatase 93 (46-116) U/L Troponin I < 0.050 (0.000-0.056) ng/mL Total Protein 8.4 H (6.4-8.2) g/dL Albumin 3.8 (3.4-5.0) g/dL Globulin 4.6 H (2.6-4.0) g/dL Albumin/Globulin Ratio 0.8 L (0.9-1.6) - Re-Assessments/Exams Free Text/Narrative Re-Assessment/Exam: 06/01/21 20:11 EKG, labs, chest x-ray are unremarkable. I did recommend a head CT given the dizziness and headache but patient declines. Will discharge with PMD follow-up. Departure - Departure Time of Disposition: 20:11 Disposition: Home, Self-Care 01 Condition: Good Clinical Impression: Dizziness - Discharge Information Instructions: Vertigo Referrals: Anh Dobbs PA [Primary Care Provider] - Forms: ED Department Discharge Additional Instructions: Your labs, chest x-ray, EKG were all normal. Your blood pressure is a little elevated. I did prescribe a medication that can be used for treatment of dizziness. I would recommend following up with your primary care physician. The following information is given to patients seen in the emergency department who are being discharged to home. This information is to outline your options for follow-up care. We provide all patients seen in our emergency department with a follow-up referral. The need for follow-up, as well as the timing and circumstances, are variable depending upon the specifics of your emergency department visit. If you don't have a primary care physician on staff, we will provide you with a referral. We always advise you to contact your personal physician following an emergency department visit to inform them of the circumstance of the visit and for follow-up with them and/or the need for any referrals to a consulting specialist. The emergency department will also refer you to a specialist when appropriate. This referral assures that you have the opportunity for follow-up care with a specialist. All of these measure are taken in an effort to provide you with optimal care, which includes your follow-up. Under all circumstances we always encourage you to contact your private physician who remains a resource for coordinating your care. When calling for follow-up care, please make the office aware that this follow-up is from your recent emergency room visit. If for any reason you are refused follow-up, please contact the [facility] Emergency Department at and asked to speak to the emergency department charge nurse. Please follow up with your primary care physician. If you do not have a primary care physician, see below: [facility] [address] [place] [id number] [facility] [address] [place] [address] [facility] [address], [place] [address] Sepsis Event Note (ED) - Evaluation Sepsis Screening Result: No Definite Risk - Focused Exam Vital Signs: Vital Signs Temp Pulse Resp BP Pulse Ox 06/01/21 18:17 97.5 F 99 18 166/83 H 99
--- NOTE | 2021-06-01 20:24 | CR ---
INDICATION: Chest pain. TECHNIQUE: Chest 1 views. COMPARISON: 04/07/2021. FINDINGS: Cardiovascular and mediastinum: Heart size and vasculature are normal in caliber and appearance. Lungs and pleural spaces: Lungs are clear. No sign of infiltrate or mass. No sign of pleural effusion. No pneumothorax. Bones and soft tissues: No significant findings. IMPRESSION: No acute findings and no significant changes from the prior exam. Dictated by Tate Recinos MD @ 06/01/2021 8:22:41 PM (Electronically Signed)
[2021-06-01 20:25] VITALS: BP 138/81; PULSE 77
== END 2021-06-01 20:24 | disposition home or self-care (01) ==
LOC: MW.ED 17:34
DX: R42 Dizziness and giddiness (principal); E78.00 Pure hypercholesterolemia, unspecified; I10 Essential (primary) hypertension; Z79.899 Other long term (current) drug therapy
CPT/HCPCS: 36415; 71045; 71045-26; 80053; 84484; 85025; 93005; 99284-25

== ENCOUNTER 2022-03-07 22:09 | Emergency (ER) | payer BC ==
[2022-03-07] MEDS ORDERED: Sodium Chloride 0.9% 2.5 ML Syringe FLUSH PRN (22:41)
[2022-03-07] MEDS ORDERED: Sodium Chloride 0.9% 10 ML Syringe FLUSH PRN (22:41)
[2022-03-07] MEDS ORDERED: Aspirin 81 MG Tab.Chew PO ONE (22:46)
[2022-03-07 23:07] LABS: CARBON DIOXIDE,CO2 27.9 mmol/L (21.0-32.0); POTASSIUM,K 3.7 mmol/L (3.5-5.1)
[2022-03-08] MEDS ORDERED: Famotidine 20 MG Tab PO ONE (00:31)
[2022-03-08] MEDS ORDERED: Alum Hydro/Mag Hydro/Simeth XS 15 ML, Lidocaine 2% 5 ML PO ONE ×2 (00:31)
[2022-03-08 01:19] VITALS: BP 132/89; PULSE 87
== END 2022-03-08 01:19 | disposition home or self-care (01) ==
LOC: MW.ED 22:09
DX: R07.89 Other chest pain (principal); E78.00 Pure hypercholesterolemia, unspecified; I10 Essential (primary) hypertension; Z20.822 Contact with and (suspected) exposure to COVID-19; Z79.899 Other long term (current) drug therapy
CPT/HCPCS: 36415; 71045; 80053; 83690; 84484; 85025; 87635; 99285; A9270; J3490; 93010; 99284; U0002

== ENCOUNTER 2022-12-30 10:10 | Emergency (ER) | payer BC ==
[2022-12-30] MEDS ORDERED: Sodium Chloride 0.9% 1,000 ML IV ONE (10:24)
[2022-12-30] MEDS ORDERED: Aspirin 81 MG Tab.Chew PO ONE (10:24)
[2022-12-30 10:34] LABS: BASOPHILS ABSOLUTE AUTO 0.1 K/uL (0.0-0.1); BASOPHILS PERCENT AUTO 1.1 % (0.0-1.5); EOSINOPHILS ABSOLUTE AUTO 0.3 K/uL (0.0-0.7); EOSINOPHILS PERCENT AUTO 5.4 % (0.0-7.0); HEMATOCRIT 38.6 % (38.0-50.0); HEMOGLOBIN 13.1 g/dL (13.0-17.0); LYMPHOCYTES ABSOLUTE AUTO 2.1 K/uL (0.6-2.4); LYMPHOCYTES PERCENT AUTO 44.6 % (16.0-40.0); MEAN CORPUSCULAR HEMOGLOBIN 27.3 pg (27.0-32.0); MEAN CORPUSCULAR HGB CONC 33.9 g/dL (31.0-37.0); MEAN CORPUSCULAR VOLUME 80.6 fL (80.0-98.0); MONOCYTES ABSOLUTE AUTO 0.5 K/uL (0.0-0.8); MONOCYTES PERCENT AUTO 10.1 % (0.0-15.0); NEUTROPHILS ABSOLUTE AUTO 1.8 K/uL (1.4-5.7); NEUTROPHILS PERCENT AUTO 38.8 % (48.0-80.0); NRBC ABSOLUTE 0 K/uL; PLATELET COUNT,PLT 144 K/uL (150-400); RED BLOOD CELL COUNT 4.79 M/uL (4.50-5.90); WHITE BLOOD CELL COUNT,WBC 4.66 K/uL (4.0-11.0)
[2022-12-30 11:06] LABS: A/G RATIO 0.9 (0.9-1.6); ALBUMIN 3.5 g/dL (3.4-5.0); BILIRUBIN TOTAL 0.7 mg/dL (0.2-1.0); CALCIUM 8.4 mg/dL (8.5-10.1); CARBON DIOXIDE,CO2 26.3 mmol/L (21.0-32.0); CREATININE 1.1 mg/dL (0.8-1.3); EST CRCL DRUG DOSING (CG) 59.8 mL/min; MAGNESIUM 2.1 mg/dL (1.8-2.4); POTASSIUM,K 3.7 mmol/L (3.5-5.1); PROTEIN TOTAL,TP 7.5 g/dL (6.4-8.2)
[2022-12-30 11:54] VITALS: BP 132/64; PULSE 67
== END 2022-12-30 11:53 | disposition home or self-care (01) ==
LOC: MW.ED 10:10
DX: R07.2 Precordial pain (principal); E78.00 Pure hypercholesterolemia, unspecified; I10 Essential (primary) hypertension; Z79.899 Other long term (current) drug therapy; Z79.82 Long term (current) use of aspirin
CPT/HCPCS: 36415; 71045; 80053; 83735; 84484; 85025; 93005; 96360; 99285; A9270; J7030; 93010; 99283

== ENCOUNTER 2023-05-06 17:41 | Emergency (ER) | payer BC ==
[2023-05-06] MEDS ORDERED: Sodium Chloride 0.9% 2.5 ML Syringe FLUSH PRN (17:55)
[2023-05-06] MEDS ORDERED: Sodium Chloride 0.9% 10 ML Syringe FLUSH PRN (17:55)
[2023-05-06 18:03] LABS: BASOPHILS ABSOLUTE AUTO 0.07 K/uL (0.00-0.20); BASOPHILS PERCENT AUTO 1.5 % (0.0-1.0); EOSINOPHILS ABSOLUTE AUTO 0.21 K/uL (0.00-0.45); EOSINOPHILS PERCENT AUTO 4.4 % (0.0-6.0); HEMATOCRIT 41.1 % (42.0-52.0); HEMOGLOBIN 13.7 g/dL (14.0-18.0); IMMATURE GRAN ABSOLUTE AUTO 0.01 K/uL (0.00-0.05); IMMATURE GRAN PERCENT AUTO 0.2 % (0.0-0.4); LYMPHOCYTES ABSOLUTE AUTO 2.38 K/uL (1.00-4.80); LYMPHOCYTES PERCENT AUTO 49.9 % (24.0-44.0); MEAN CORPUSCULAR HEMOGLOBIN 26.7 pg (28.0-32.0); MEAN CORPUSCULAR HGB CONC 33.3 g/dL (32.0-36.0); MEAN PLATELET VOLUME 10.4 fL (9.4-12.4); MONOCYTES ABSOLUTE AUTO 0.58 K/uL (0.00-0.80); MONOCYTES PERCENT AUTO 12.2 % (0.0-8.0); NEUTROPHILS ABSOLUTE AUTO 1.5 K/uL (1.8-7.7); NEUTROPHILS PERCENT AUTO 31.8 % (41.0-71.0); PLATELET COUNT,PLT 169 K/uL (150-400); RED BLOOD CELL COUNT 5.14 M/uL (4.52-5.90); WHITE BLOOD CELL COUNT,WBC 4.77 K/uL (3.9-11.3)
[2023-05-06 18:16] VITALS: BP 152/78; PULSE 77
[2023-05-06] MEDS ORDERED: Meclizine 25 MG Tab PO STA (18:45)
[2023-05-06 19:05] LABS: APPEARANCE,URINE CLEAR; BILIRUBIN,URINE NEGATIVE (NEGATIVE); COLOR,URINE YELLOW; GLUCOSE,URINE NEGATIVE (NEGATIVE); KETONES,URINE NEGATIVE (NEGATIVE); LEUKOCYTE ESTERASE,URINE NEGATIVE (NEGATIVE); NITRITE,URINE NEGATIVE (NEGATIVE); OCCULT BLOOD,URINE NEGATIVE (NEGATIVE); PH,URINE 5.5 (5.0-8.0); PROTEIN,URINE NEGATIVE (NEGATIVE); UROBILINOGEN,URINE 0.2 EU/dL (<2.0)
[2023-05-06 19:38] LABS: ALBUMIN 4.1 g/dL (3.4-5.0); BILIRUBIN TOTAL 0.6 mg/dL (0.2-1.0); CREATININE 1.1 mg/dL (0.8-1.3); EST CRCL DRUG DOSING (CG) 59.8 mL/min; POTASSIUM,K 3.7 mmol/L (3.5-5.1); PROTEIN TOTAL,TP 8.4 g/dL (6.4-8.2)
== END 2023-05-06 19:34 | disposition left against medical advice (07) ==
LOC: MW.ED 17:41
DX: R42 Dizziness and giddiness (principal); E78.00 Pure hypercholesterolemia, unspecified; I10 Essential (primary) hypertension; Z86.16 Personal history of COVID-19; Z79.82 Long term (current) use of aspirin; Z79.899 Other long term (current) drug therapy
CPT/HCPCS: 36415; 70450; 80053; 81003; 83690; 83735; 84484; 85025; 93005; 99285; A9270; J3490; 93010; 99283

== ENCOUNTER 2023-09-18 18:34 | Emergency (ER) | payer BC ==
[2023-09-18 19:21] LABS: BASOPHILS ABSOLUTE AUTO 0.05 K/uL (0.00-0.20); EOSINOPHILS ABSOLUTE AUTO 0.29 K/uL (0.00-0.45); EOSINOPHILS PERCENT AUTO 6.1 % (0.0-6.0); HEMATOCRIT 39.6 % (42.0-52.0); HEMOGLOBIN 13.1 g/dL (14.0-18.0); IMMATURE GRAN ABSOLUTE AUTO 0.01 K/uL (0.00-0.05); IMMATURE GRAN PERCENT AUTO 0.2 % (0.0-0.4); LYMPHOCYTES ABSOLUTE AUTO 2.41 K/uL (1.00-4.80); LYMPHOCYTES PERCENT AUTO 50.4 % (24.0-44.0); MEAN CORPUSCULAR HEMOGLOBIN 26.8 pg (28.0-32.0); MEAN CORPUSCULAR HGB CONC 33.1 g/dL (32.0-36.0); MEAN PLATELET VOLUME 10.7 fL (9.4-12.4); MONOCYTES ABSOLUTE AUTO 0.55 K/uL (0.00-0.80); MONOCYTES PERCENT AUTO 11.5 % (0.0-8.0); NEUTROPHILS ABSOLUTE AUTO 1.47 K/uL (1.80-7.70); NEUTROPHILS PERCENT AUTO 30.8 % (41.0-71.0); PLATELET COUNT,PLT 193 K/uL (150-400); RED BLOOD CELL COUNT 4.89 M/uL (4.52-5.90); WHITE BLOOD CELL COUNT,WBC 4.78 K/uL (3.9-11.3)
[2023-09-18 19:41] LABS: A/G RATIO 0.9 (0.9-1.6); ALBUMIN 3.6 g/dL (3.4-5.0); BILIRUBIN TOTAL 0.5 mg/dL (0.2-1.0); CALCIUM 8.6 mg/dL (8.5-10.1); CARBON DIOXIDE,CO2 27.1 mmol/L (21.0-32.0); CREATININE 1.2 mg/dL (0.8-1.3); EST CRCL DRUG DOSING (CG) 54.13 mL/min; POTASSIUM,K 3.8 mmol/L (3.5-5.1); PROTEIN TOTAL,TP 7.8 g/dL (6.4-8.2)
[2023-09-18 19:46] LABS: MAGNESIUM 2.1 mg/dL (1.8-2.4)
[2023-09-18 20:51] VITALS: BP 143/78; PULSE 73
== END 2023-09-18 20:51 | disposition home or self-care (01) ==
LOC: MW.ED 18:34
DX: R00.2 Palpitations (principal); I10 Essential (primary) hypertension; E78.00 Pure hypercholesterolemia, unspecified; Z79.82 Long term (current) use of aspirin; Z86.16 Personal history of COVID-19; Z79.899 Other long term (current) drug therapy
CPT/HCPCS: 36415; 71046; 71046-26; 80053; 83690; 83735; 84484; 85025; 93010; 99282; 99285

== ENCOUNTER 2024-05-12 10:40 | Emergency (ER) | payer BC ==
[2024-05-12 11:03] LABS: BASOPHILS ABSOLUTE AUTO 0.04 K/uL (0.00-0.20); BASOPHILS PERCENT AUTO 0.6 % (0.0-1.0); EOSINOPHILS PERCENT AUTO 4.4 % (0.0-6.0); HEMOGLOBIN 15.6 g/dL (14.0-18.0); IMMATURE GRAN ABSOLUTE AUTO 0.03 K/uL (0.00-0.05); IMMATURE GRAN PERCENT AUTO 0.4 % (0.0-0.4); LYMPHOCYTES ABSOLUTE AUTO 1.78 K/uL (1.00-4.80); LYMPHOCYTES PERCENT AUTO 26.1 % (24.0-44.0); MEAN CORPUSCULAR HEMOGLOBIN 26.6 pg (28.0-32.0); MEAN CORPUSCULAR HGB CONC 33.2 g/dL (32.0-36.0); MEAN CORPUSCULAR VOLUME 80.1 fL (83.0-99.0); MONOCYTES ABSOLUTE AUTO 1.33 K/uL (0.00-0.80); MONOCYTES PERCENT AUTO 19.5 % (0.0-8.0); NEUTROPHILS ABSOLUTE AUTO 3.35 K/uL (1.80-7.70); PLATELET COUNT,PLT 211 K/uL (150-400); RED BLOOD CELL COUNT 5.87 M/uL (4.52-5.90); WHITE BLOOD CELL COUNT,WBC 6.83 K/uL (3.9-11.3)
[2024-05-12 12:01] LABS: A/G RATIO 0.9 (0.9-1.6); ALBUMIN 3.8 g/dL (3.4-5.0); BILIRUBIN TOTAL 0.9 mg/dL (0.2-1.0); CALCIUM 9.5 mg/dL (8.5-10.1); CARBON DIOXIDE,CO2 26.1 mmol/L (21.0-32.0); CREATININE 1.1 mg/dL (0.8-1.3); EST CRCL DRUG DOSING (CG) 59.05 mL/min; POTASSIUM,K 3.9 mmol/L (3.5-5.1)
[2024-05-12 12:02] LABS: MAGNESIUM 2.1 mg/dL (1.8-2.4)
[2024-05-12 12:55] LABS: APPEARANCE,URINE CLEAR; BILIRUBIN,URINE NEGATIVE (NEGATIVE); COLOR,URINE YELLOW; GLUCOSE,URINE NEGATIVE (NEGATIVE); KETONES,URINE TRACE mg/dL (NEGATIVE); LEUKOCYTE ESTERASE,URINE NEGATIVE (NEGATIVE); NITRITE,URINE NEGATIVE (NEGATIVE); OCCULT BLOOD,URINE NEGATIVE (NEGATIVE); PH,URINE 7.5 (5.0-8.0); PROTEIN,URINE NEGATIVE (NEGATIVE)
[2024-05-12 14:45] VITALS: BP 141/83; PULSE 83
== END 2024-05-12 14:44 | disposition home or self-care (01) ==
LOC: MW.ED 10:40
DX: J18.9 Pneumonia, unspecified organism (principal); L02.214 Cutaneous abscess of groin; I10 Essential (primary) hypertension; E78.00 Pure hypercholesterolemia, unspecified; Z79.899 Other long term (current) drug therapy; Z79.82 Long term (current) use of aspirin; Z75.8 Other problems related to medical facilities and other health care
CPT/HCPCS: 36415; 71046; 71046-26; 76870; 76870-26; 80053; 81003; 83690; 83735; 84484; 85025; 93005; 93010; 99283; 99285

== ENCOUNTER 2024-05-14 16:31 | Emergency (ER) | payer BC ==
[2024-05-14 17:17] LABS: HEMATOCRIT 40.5 % (42.0-52.0); MEAN CORPUSCULAR HEMOGLOBIN 26.3 pg (28.0-32.0); MEAN CORPUSCULAR HGB CONC 32.1 g/dL (32.0-36.0); MEAN CORPUSCULAR VOLUME 81.8 fL (83.0-99.0); MEAN PLATELET VOLUME 10.4 fL (9.4-12.4); PLATELET COUNT,PLT 190 K/uL (150-400); RED BLOOD CELL COUNT 4.95 M/uL (4.52-5.90); WHITE BLOOD CELL COUNT,WBC 9.98 K/uL (3.9-11.3)
[2024-05-14 17:52] LABS: A/G RATIO 0.9 (0.9-1.6); ALBUMIN 3.1 g/dL (3.4-5.0); BILIRUBIN TOTAL 0.6 mg/dL (0.2-1.0); CALCIUM 8.7 mg/dL (8.5-10.1); CARBON DIOXIDE,CO2 26.6 mmol/L (21.0-32.0); CREATININE 1.2 mg/dL (0.8-1.3); EST CRCL DRUG DOSING (CG) 54.13 mL/min; POTASSIUM,K 3.6 mmol/L (3.5-5.1); PROTEIN TOTAL,TP 6.6 g/dL (6.4-8.2)
[2024-05-14 17:59] LABS: EOSINOPHILS PERCENT MAN 3 % (0-6); LYMPHOCYTES PERCENT MAN 13 % (24-44); MONOCYTES PERCENT MAN 17 % (0-8); SEG NEUTROPHILS ABSOLUTE MAN 6.69 K/uL (1.80-7.70); SEG NEUTROPHILS PERCENT MAN 67 % (41-71)
[2024-05-14 18:02] LABS: LACTIC ACID 2.3 mmol/L (0.4-2.0)
[2024-05-14] MEDS: Sodium Chloride 0.9% 1,000 ML IV ONE (18:05)
[2024-05-14] MEDS: methylPREDNISolone Sodium Succinate 125 MG/2 ML SDV IVPUSH ONE (18:05)
[2024-05-14] MEDS: cefTRIAXone 1 GM in Sodium Chloride 0.9% 50 ML IV ONE (18:05)
[2024-05-14 18:09] LABS: INR 1.18 (0.86-1.11)
[2024-05-14] MEDS: Iopamidol 755 MG/ML 500 ML Multipack Bottle IVPUSH STA (19:06)
[2024-05-14] MEDS: Sodium Chloride 0.9% 10 ML Syringe FLUSH PRN (19:31)
[2024-05-14] MEDS: Sodium Chloride 0.9% 2.5 ML Syringe FLUSH PRN (19:31)
[2024-05-14] MEDS: Azithromycin 500 MG in Sodium Chloride 0.9% 250 ML IV ONE (19:31)
[2024-05-14 19:48] LABS: CORONAVIRUS COVID-19 NAA NEGATIVE (NEGATIVE); INFLUENZA A NAA NEGATIVE (NEGATIVE); INFLUENZA B NAA NEGATIVE (NEGATIVE)
[2024-05-14 23:26] VITALS: BP 150/79; PULSE 109
[2024-05-15 20:07] LABS: BORDETELLA PARAPERT IS1001 Not Detected (Not Detected)
== END 2024-05-15 00:10 ==
LOC: MW.ED 16:31
DX: J18.9 Pneumonia, unspecified organism (principal); R09.02 Hypoxemia; R59.1 Generalized enlarged lymph nodes; I10 Essential (primary) hypertension; E78.00 Pure hypercholesterolemia, unspecified; Z79.82 Long term (current) use of aspirin; Z79.899 Other long term (current) drug therapy; Z75.8 Other problems related to medical facilities and other health care
CPT/HCPCS: 0240U; 36415; 71045; 71275; 80053; 83605; 84484; 85025; 85379; 85610; 87040; 87486; 87581; 87633; 93005; 96361; 96365; 96367; 96375; 99285; J0456; J0696; J2919; J3490; J7030; J7050; Q9967; 93010

== ENCOUNTER 2024-05-25 20:37 | Emergency (ER) | payer BC ==
[2024-05-25 21:10] LABS: HEMATOCRIT 42.4 % (42.0-52.0); HEMOGLOBIN 14.2 g/dL (14.0-18.0); MEAN CORPUSCULAR HEMOGLOBIN 26.5 pg (28.0-32.0); MEAN CORPUSCULAR HGB CONC 33.5 g/dL (32.0-36.0); MEAN CORPUSCULAR VOLUME 79.3 fL (83.0-99.0); PLATELET COUNT,PLT 205 K/uL (150-400); RED BLOOD CELL COUNT 5.35 M/uL (4.52-5.90); WHITE BLOOD CELL COUNT,WBC 10.07 K/uL (3.9-11.3)
[2024-05-25] MEDS: Sodium Chloride 0.9% 1,000 ML IV ONE (21:30)
[2024-05-25 21:46] LABS: A/G RATIO 0.9 (0.9-1.6); BILIRUBIN TOTAL 0.7 mg/dL (0.2-1.0); CALCIUM 11.3 mg/dL (8.5-10.1); CREATININE 1.3 mg/dL (0.8-1.3); EST CRCL DRUG DOSING (CG) 55.11 mL/min; MAGNESIUM 1.7 mg/dL (1.8-2.4); POTASSIUM,K 3.6 mmol/L (3.5-5.1); PROTEIN TOTAL,TP 6.2 g/dL (6.4-8.2)
[2024-05-25 21:51] LABS: EOSINOPHILS PERCENT MAN 4 % (0-6); LYMPHOCYTES ABSOLUTE MAN 1.21 K/uL (1.00-4.80); LYMPHOCYTES PERCENT MAN 12 % (24-44); MONOCYTES ABSOLUTE MAN 1.81 K/uL (0.00-0.80); MONOCYTES PERCENT MAN 18 % (0-8); SEG NEUTROPHILS ABSOLUTE MAN 6.65 K/uL (1.80-7.70); SEG NEUTROPHILS PERCENT MAN 66 % (41-71)
[2024-05-26 02:35] VITALS: BP 133/62; PULSE 103
== END 2024-05-26 02:40 | disposition home or self-care (01) ==
LOC: MW.ED 20:37
DX: R07.9 Chest pain, unspecified (principal); R00.0 Tachycardia, unspecified; I10 Essential (primary) hypertension; E78.00 Pure hypercholesterolemia, unspecified; Z75.8 Other problems related to medical facilities and other health care; Z87.01 Personal history of pneumonia (recurrent); Z79.899 Other long term (current) drug therapy; Z79.01 Long term (current) use of anticoagulants
CPT/HCPCS: 36415; 71045; 80053; 83690; 83735; 83880; 84484; 85025; 93005; 96360; 96361; 99285; J7030; 93010; 99282

== ENCOUNTER 2024-05-30 13:44 | Inpatient (IN) | payer BC ==
[2024-05-30] MEDS ORDERED: Sodium Chloride 0.9% 2.5 ML Syringe FLUSH PRN (14:05)
[2024-05-30 14:44] LABS: HEMATOCRIT 43.2 % (42.0-52.0); HEMOGLOBIN 14.1 g/dL (14.0-18.0); MEAN CORPUSCULAR HEMOGLOBIN 26.3 pg (28.0-32.0); MEAN CORPUSCULAR HGB CONC 32.6 g/dL (32.0-36.0); MEAN CORPUSCULAR VOLUME 80.6 fL (83.0-99.0); MEAN PLATELET VOLUME 10.7 fL (9.4-12.4); PLATELET COUNT,PLT 205 K/uL (150-400); RED BLOOD CELL COUNT 5.36 M/uL (4.52-5.90); WHITE BLOOD CELL COUNT,WBC 9.55 K/uL (3.9-11.3)
[2024-05-30] MEDS: Sodium Chloride 0.9% 1,000 ML IV ONE ×2 (14:48→16:22)
[2024-05-30] MEDS: Sodium Chloride 0.9% 10 ML Syringe FLUSH PRN (14:49)
[2024-05-30 14:50] LABS: CORONAVIRUS COVID-19 NAA NEGATIVE (NEGATIVE); INFLUENZA A NAA NEGATIVE (NEGATIVE); INFLUENZA B NAA NEGATIVE (NEGATIVE)
[2024-05-30 15:10] LABS: BASOPHILS PERCENT MAN 1 % (0-1); EOSINOPHILS ABSOLUTE MAN 0.29 K/uL (0.00-0.45); EOSINOPHILS PERCENT MAN 3 % (0-6); LYMPHOCYTES ABSOLUTE MAN 1.24 K/uL (1.00-4.80); LYMPHOCYTES PERCENT MAN 13 % (24-44); MONOCYTES ABSOLUTE MAN 1.53 K/uL (0.00-0.80); MONOCYTES PERCENT MAN 16 % (0-8); SEG NEUTROPHILS PERCENT MAN 67 % (41-71)
[2024-05-30 15:12] LABS: A/G RATIO 0.9 (0.9-1.6); ALBUMIN 2.9 g/dL (3.4-5.0); BILIRUBIN TOTAL 0.8 mg/dL (0.2-1.0); CARBON DIOXIDE,CO2 28.1 mmol/L (21.0-32.0); CREATININE 1.6 mg/dL (0.8-1.3); EST CRCL DRUG DOSING (CG) 40.6 mL/min; MAGNESIUM 1.3 mg/dL (1.8-2.4); POTASSIUM,K 3.3 mmol/L (3.5-5.1); PROTEIN TOTAL,TP 6.1 g/dL (6.4-8.2)
[2024-05-30 15:15] LABS: CALCIUM 15.4 mg/dL (8.5-10.1)
[2024-05-30] MEDS: Calcitonin (Salmon) 200 Units/ML 2 ML MDV SUBCUT ONE (16:22)
[2024-05-30] MEDS ORDERED: Ondansetron 4 MG/2 ML SDV IVPUSH PRN (17:53)
[2024-05-30] MEDS ORDERED: Melatonin 3 MG Tab PO PRN (17:53)
[2024-05-30] MEDS ORDERED: Acetaminophen 325 MG Tab PO PRN (17:53)
[2024-05-30] MEDS ORDERED: Polyethylene Glycol 3350 Powder 17 GM Packet PO PRN (17:53)
[2024-05-30] MEDS ORDERED: Docusate Sodium 100 MG Cap PO PRN (17:53)
[2024-05-30] MEDS: Sodium Chloride 0.9% 1,000 ML IV SCH (18:16)
[2024-05-30 18:20] LABS: CALCIUM 14.1 mg/dL (8.5-10.1); CARBON DIOXIDE,CO2 25.9 mmol/L (21.0-32.0); CREATININE 1.3 mg/dL (0.8-1.3); EST CRCL DRUG DOSING (CG) 49.97 mL/min; MAGNESIUM 1.1 mg/dL (1.8-2.4); PHOSPHORUS 2.9 mg/dL (2.6-4.7); POTASSIUM,K 2.9 mmol/L (3.5-5.1)
[2024-05-30] MEDS ORDERED: Cefepime 2 GM in Sodium Chloride 0.9% 50 ML IV SCH (18:30)
[2024-05-30 18:51] LABS: APPEARANCE,URINE CLEAR; BILIRUBIN,URINE NEGATIVE (NEGATIVE); COLOR,URINE YELLOW; GLUCOSE,URINE NEGATIVE (NEGATIVE); KETONES,URINE NEGATIVE (NEGATIVE); LEUKOCYTE ESTERASE,URINE NEGATIVE (NEGATIVE); NITRITE,URINE NEGATIVE (NEGATIVE); OCCULT BLOOD,URINE NEGATIVE (NEGATIVE); PH,URINE 6.5 (5.0-8.0); PROTEIN,URINE NEGATIVE (NEGATIVE); UROBILINOGEN,URINE 0.2 EU/dL (<2.0)
[2024-05-30] MEDS: Azithromycin 250 MG Tab PO SCH (19:06)
[2024-05-30] MEDS: Potassium Chloride 20 MEQ Tab.ER PO ONE (19:12)
[2024-05-30] MEDS: Enoxaparin 40 MG/0.4 ML Syringe SUBCUT SCH (19:18)
[2024-05-30] MEDS: Cefepime 1 GM in Sodium Chloride 0.9% 50 ML IV SCH (19:21)
[2024-05-30] MEDS: Furosemide 40 MG/4 ML VIAL IVPUSH SCH (19:26)
[2024-05-30] MEDS: Magnesium Sulfate/Water Premix 2 GM in Premix Bag 1 BAG IV ONE (20:20)
[2024-05-30] MEDS: amLODIPine 5 MG Tab PO SCH (20:20)
[2024-05-30] MEDS: guaiFENesin 100 MG/5 ML Soln 5 ML UD Cup PO PRN (20:37)
[2024-05-30 21:06] LABS: LACTIC ACID 2.1 mmol/L (0.4-2.0)
[2024-05-30 22:53] LABS: CALCIUM 13.3 mg/dL (8.5-10.1); CARBON DIOXIDE,CO2 27.7 mmol/L (21.0-32.0); CREATININE 1.4 mg/dL (0.8-1.3); EST CRCL DRUG DOSING (CG) 46.4 mL/min; MAGNESIUM 1.5 mg/dL (1.8-2.4); PHOSPHORUS 3.4 mg/dL (2.6-4.7); POTASSIUM,K 3.3 mmol/L (3.5-5.1)
[2024-05-31] MEDS: Potassium Chloride 20 MEQ Tab.ER PO ONE ×2 (00:42→18:05)
[2024-05-31 02:57] LABS: CALCIUM 12.8 mg/dL (8.5-10.1); CARBON DIOXIDE,CO2 26.2 mmol/L (21.0-32.0); CREATININE 1.4 mg/dL (0.8-1.3); EST CRCL DRUG DOSING (CG) 46.4 mL/min; MAGNESIUM 1.5 mg/dL (1.8-2.4); PHOSPHORUS 3.3 mg/dL (2.6-4.7); POTASSIUM,K 4.3 mmol/L (3.5-5.1)
[2024-05-31 06:34] LABS: HEMATOCRIT 39.3 % (42.0-52.0); HEMOGLOBIN 13.1 g/dL (14.0-18.0); MEAN CORPUSCULAR HEMOGLOBIN 26.5 pg (28.0-32.0); MEAN CORPUSCULAR HGB CONC 33.3 g/dL (32.0-36.0); MEAN CORPUSCULAR VOLUME 79.6 fL (83.0-99.0); PLATELET COUNT,PLT 223 K/uL (150-400); RED BLOOD CELL COUNT 4.94 M/uL (4.52-5.90); WHITE BLOOD CELL COUNT,WBC 10.83 K/uL (3.9-11.3)
[2024-05-31 07:08] LABS: A/G RATIO 0.9 (0.9-1.6); ALBUMIN 2.6 g/dL (3.4-5.0); BILIRUBIN TOTAL 0.8 mg/dL (0.2-1.0); CALCIUM 11.9 mg/dL (8.5-10.1); CARBON DIOXIDE,CO2 24.5 mmol/L (21.0-32.0); CREATININE 1.3 mg/dL (0.8-1.3); EST CRCL DRUG DOSING (CG) 49.97 mL/min; MAGNESIUM 1.3 mg/dL (1.8-2.4); PHOSPHORUS 3.1 mg/dL (2.6-4.7); POTASSIUM,K 4.1 mmol/L (3.5-5.1); PROTEIN TOTAL,TP 5.6 g/dL (6.4-8.2)
[2024-05-31] MEDS ORDERED: Albuterol/Ipratropium 3.0-0.5 MG/3 ML Neb Soln NEB PRN (07:21)
[2024-05-31 07:46] LABS: EOSINOPHILS ABSOLUTE MAN 0.11 K/uL (0.00-0.45); EOSINOPHILS PERCENT MAN 1 % (0-6); LYMPHOCYTES ABSOLUTE MAN 1.95 K/uL (1.00-4.80); LYMPHOCYTES PERCENT MAN 18 % (24-44); MONOCYTES ABSOLUTE MAN 2.17 K/uL (0.00-0.80); MONOCYTES PERCENT MAN 20 % (0-8); SEG NEUTROPHILS ABSOLUTE MAN 6.61 K/uL (1.80-7.70); SEG NEUTROPHILS PERCENT MAN 61 % (41-71)
[2024-05-31] MEDS: Zoledronic Acid in Water 4 MG in Premix Bag 1 BAG IV ONE (08:26)
[2024-05-31] MEDS: Rosuvastatin 10 MG Tab PO SCH (08:31)
[2024-05-31] MEDS: Magnesium Sulfate/Water Premix 2 GM in Premix Bag 1 BAG IV ONE (08:31)
[2024-05-31] MEDS: Losartan 50 MG Tab PO SCH (08:31)
[2024-05-31] MEDS: Pantoprazole 40 MG Tab.CR PO SCH (08:31)
[2024-05-31] MEDS: Phenazopyridine 200 MG Tab PO PRN (10:15)
[2024-05-31 11:02] LABS: CALCIUM 13.1 mg/dL (8.5-10.1); CARBON DIOXIDE,CO2 22.9 mmol/L (21.0-32.0); CREATININE 1.5 mg/dL (0.8-1.3); EST CRCL DRUG DOSING (CG) 43.3 mL/min; POTASSIUM,K 3.5 mmol/L (3.5-5.1)
[2024-05-31] MEDS: Benzonatate 100 MG Cap PO PRN (14:27)
[2024-05-31 14:49] LABS: CARBON DIOXIDE,CO2 26.2 mmol/L (21.0-32.0); CREATININE 1.4 mg/dL (0.8-1.3); EST CRCL DRUG DOSING (CG) 46.4 mL/min; POTASSIUM,K 3.4 mmol/L (3.5-5.1)
[2024-05-31] MEDS: Calcitonin (Salmon) 200 Units/ML 2 ML MDV SUBCUT SCH (14:58)
[2024-05-31 19:08] LABS: CALCIUM 12.3 mg/dL (8.5-10.1); CARBON DIOXIDE,CO2 24.3 mmol/L (21.0-32.0); CREATININE 1.4 mg/dL (0.8-1.3); EST CRCL DRUG DOSING (CG) 46.4 mL/min; POTASSIUM,K 3.5 mmol/L (3.5-5.1)
[2024-05-31 22:39] LABS: CALCIUM 12.1 mg/dL (8.5-10.1); CARBON DIOXIDE,CO2 25.6 mmol/L (21.0-32.0); CREATININE 1.4 mg/dL (0.8-1.3); EST CRCL DRUG DOSING (CG) 46.4 mL/min; POTASSIUM,K 3.5 mmol/L (3.5-5.1)
[2024-06-01 06:11] LABS: HEMATOCRIT 40.1 % (42.0-52.0); HEMOGLOBIN 12.8 g/dL (14.0-18.0); MEAN CORPUSCULAR HEMOGLOBIN 25.9 pg (28.0-32.0); MEAN CORPUSCULAR HGB CONC 31.9 g/dL (32.0-36.0); MEAN CORPUSCULAR VOLUME 81.2 fL (83.0-99.0); MEAN PLATELET VOLUME 10.3 fL (9.4-12.4); PLATELET COUNT,PLT 205 K/uL (150-400); RED BLOOD CELL COUNT 4.94 M/uL (4.52-5.90)
[2024-06-01 06:41] LABS: A/G RATIO 0.8 (0.9-1.6); ALBUMIN 2.4 g/dL (3.4-5.0); BILIRUBIN TOTAL 0.8 mg/dL (0.2-1.0); CALCIUM 11.4 mg/dL (8.5-10.1); CARBON DIOXIDE,CO2 22.4 mmol/L (21.0-32.0); CREATININE 1.3 mg/dL (0.8-1.3); EST CRCL DRUG DOSING (CG) 49.97 mL/min; MAGNESIUM 1.2 mg/dL (1.8-2.4); POTASSIUM,K 3.4 mmol/L (3.5-5.1); PROTEIN TOTAL,TP 5.5 g/dL (6.4-8.2)
[2024-06-01 07:00] LABS: EOSINOPHILS ABSOLUTE MAN 0.11 K/uL (0.00-0.45); EOSINOPHILS PERCENT MAN 1 % (0-6); LYMPHOCYTES ABSOLUTE MAN 1.46 K/uL (1.00-4.80); LYMPHOCYTES PERCENT MAN 13 % (24-44); MONOCYTES ABSOLUTE MAN 1.46 K/uL (0.00-0.80); MONOCYTES PERCENT MAN 13 % (0-8); SEG NEUTROPHILS ABSOLUTE MAN 8.18 K/uL (1.80-7.70); SEG NEUTROPHILS PERCENT MAN 73 % (41-71)
[2024-06-01] MEDS: Potassium Chloride 20 MEQ Tab.ER PO ONE (10:54)
[2024-06-01] MEDS: Magnesium Sulfate/Water Premix 2 GM in Premix Bag 1 BAG IV ONE (10:58)
[2024-06-01] MEDS: Potassium Chloride 20 MEQ Tab.ER ONE (11:00)
[2024-06-01] MEDS: Furosemide 40 MG/4 ML VIAL IVPUSH ONE (11:01)
[2024-06-01] MEDS ORDERED: Non-Formulary Medication 1 Each (Amlodipine 10 MG Tablet) PO SCH (11:30)
[2024-06-01 12:53] LABS: CALCIUM 11.6 mg/dL (8.5-10.1); CARBON DIOXIDE,CO2 21.8 mmol/L (21.0-32.0); CREATININE 1.3 mg/dL (0.8-1.3); EST CRCL DRUG DOSING (CG) 49.97 mL/min; MAGNESIUM 2.2 mg/dL (1.8-2.4); POTASSIUM,K 3.6 mmol/L (3.5-5.1)
[2024-06-01] MEDS: Furosemide 40 MG/4 ML VIAL IVPUSH SCH (15:04)
[2024-06-01 18:41] LABS: CALCIUM 10.8 mg/dL (8.5-10.1); CARBON DIOXIDE,CO2 23.1 mmol/L (21.0-32.0); CREATININE 1.5 mg/dL (0.8-1.3); EST CRCL DRUG DOSING (CG) 43.3 mL/min; MAGNESIUM 1.5 mg/dL (1.8-2.4); POTASSIUM,K 3.9 mmol/L (3.5-5.1)
[2024-06-02 00:21] LABS: CALCIUM 10.2 mg/dL (8.5-10.1); CARBON DIOXIDE,CO2 23.7 mmol/L (21.0-32.0); CREATININE 1.4 mg/dL (0.8-1.3); EST CRCL DRUG DOSING (CG) 46.4 mL/min; MAGNESIUM 1.5 mg/dL (1.8-2.4); POTASSIUM,K 3.2 mmol/L (3.5-5.1)
[2024-06-02] MEDS ORDERED: Magnesium Sulfate (4.06 MEQ/ML) 5 GM/10 ML SDV IV ONE (01:10)
[2024-06-02] MEDS: Potassium Chloride 10 MEQ in Premix Bag 1 BAG IV SCH (01:27)
[2024-06-02] MEDS: Potassium Chloride 10% 20 MEQ/15 ML Soln 15 ML UD Cup PO ONE (01:27)
[2024-06-02] MEDS: Magnesium Sulfate/Water Premix 2 GM in Premix Bag 1 BAG IV ONE ×2 (05:02→09:05)
[2024-06-02 05:45] LABS: HEMATOCRIT 39.7 % (42.0-52.0); HEMOGLOBIN 12.9 g/dL (14.0-18.0); MEAN CORPUSCULAR HEMOGLOBIN 26.1 pg (28.0-32.0); MEAN CORPUSCULAR HGB CONC 32.5 g/dL (32.0-36.0); MEAN CORPUSCULAR VOLUME 80.4 fL (83.0-99.0); PLATELET COUNT,PLT 234 K/uL (150-400); RED BLOOD CELL COUNT 4.94 M/uL (4.52-5.90); WHITE BLOOD CELL COUNT,WBC 11.86 K/uL (3.9-11.3)
[2024-06-02 06:18] LABS: A/G RATIO 0.8 (0.9-1.6); ALBUMIN 2.5 g/dL (3.4-5.0); BILIRUBIN TOTAL 0.9 mg/dL (0.2-1.0); CALCIUM 10.2 mg/dL (8.5-10.1); CARBON DIOXIDE,CO2 22.4 mmol/L (21.0-32.0); CREATININE 1.4 mg/dL (0.8-1.3); EST CRCL DRUG DOSING (CG) 46.4 mL/min; MAGNESIUM 1.4 mg/dL (1.8-2.4); PHOSPHORUS 1.3 mg/dL (2.6-4.7); POTASSIUM,K 4.4 mmol/L (3.5-5.1); PROTEIN TOTAL,TP 5.5 g/dL (6.4-8.2)
[2024-06-02 06:21] LABS: BASOPHILS ABSOLUTE MAN 0.12 K/uL (0.00-0.20); BASOPHILS PERCENT MAN 1 % (0-1); EOSINOPHILS ABSOLUTE MAN 0.12 K/uL (0.00-0.45); EOSINOPHILS PERCENT MAN 1 % (0-6); LYMPHOCYTES ABSOLUTE MAN 2.02 K/uL (1.00-4.80); LYMPHOCYTES PERCENT MAN 17 % (24-44); MONOCYTES ABSOLUTE MAN 2.13 K/uL (0.00-0.80); MONOCYTES PERCENT MAN 18 % (0-8); SEG NEUTROPHILS ABSOLUTE MAN 7.47 K/uL (1.80-7.70); SEG NEUTROPHILS PERCENT MAN 63 % (41-71)
[2024-06-02 14:07] LABS: INTACT PTH 18 pg/mL (15-65)
[2024-06-02] MEDS: Phosphorus #1 250 MG Tab PO SCH (14:40)
[2024-06-02] MEDS: Ondansetron 4 MG Tab.DIS PO PRN (17:45)
[2024-06-02] MEDS: traMADol 50 MG Tab PO PRN (19:44)
[2024-06-03 07:47] LABS: HEMATOCRIT 37.3 % (42.0-52.0); HEMOGLOBIN 12.3 g/dL (14.0-18.0); MEAN CORPUSCULAR HEMOGLOBIN 26.7 pg (28.0-32.0); MEAN CORPUSCULAR VOLUME 80.9 fL (83.0-99.0); MEAN PLATELET VOLUME 10.5 fL (9.4-12.4); PLATELET COUNT,PLT 221 K/uL (150-400); RED BLOOD CELL COUNT 4.61 M/uL (4.52-5.90)
[2024-06-03 08:13] LABS: A/G RATIO 0.9 (0.9-1.6); ALBUMIN 2.6 g/dL (3.4-5.0); BILIRUBIN TOTAL 0.8 mg/dL (0.2-1.0); CALCIUM 8.9 mg/dL (8.5-10.1); CARBON DIOXIDE,CO2 20.7 mmol/L (21.0-32.0); CREATININE 2.5 mg/dL (0.8-1.3); EST CRCL DRUG DOSING (CG) 25.98 mL/min; PROTEIN TOTAL,TP 5.6 g/dL (6.4-8.2)
[2024-06-03 08:28] LABS: LACTIC ACID 1.6 mmol/L (0.4-2.0)
[2024-06-03 08:46] LABS: BASOPHILS ABSOLUTE MAN 0.13 K/uL (0.00-0.20); BASOPHILS PERCENT MAN 1 % (0-1); LYMPHOCYTES ABSOLUTE MAN 2.69 K/uL (1.00-4.80); LYMPHOCYTES PERCENT MAN 21 % (24-44); MONOCYTES ABSOLUTE MAN 1.79 K/uL (0.00-0.80); MONOCYTES PERCENT MAN 14 % (0-8); SEG NEUTROPHILS ABSOLUTE MAN 8.19 K/uL (1.80-7.70); SEG NEUTROPHILS PERCENT MAN 64 % (41-71)
[2024-06-03] MEDS: Iopamidol 755 MG/ML 500 ML Multipack Bottle IVPUSH STA (09:22)
[2024-06-03] MEDS: Sodium Chloride 0.9% 1,000 ML IV ONE (09:51)
[2024-06-03 13:14] VITALS: BP 116/58; PULSE 92
[2024-06-03 17:06] LABS: QNTIFERON MITOGEN MIN NIL 2.65 IU/mL; QNTIFERON NIL 0.07 IU/mL; QNTIFERON PLUS TB1 MINUS NIL 0.07 IU/mL (<=0.34); QNTIFERON TB GOLD PLUS Negative (Negative)
== END 2024-06-03 13:45 | DRG 425 ==
LOC: MW.ED 13:44 → MW.ICU 15:51 → MW.MS 06-02 20:15
PROVIDERS: ADMIT Family Medicine; ATTEND Family Medicine
DX: E83.52 Hypercalcemia (principal); I10 Essential (primary) hypertension; E78.00 Pure hypercholesterolemia, unspecified; H54.7 Unspecified visual loss; E87.6 Hypokalemia; E83.42 Hypomagnesemia; I08.1 Rheumatic disorders of both mitral and tricuspid valves; Z98.49 Cataract extraction status, unspecified eye; Z79.899 Other long term (current) drug therapy
CPT/HCPCS: 0240U; 36415; 71046; 71046-26; 71275; 71275-26; 80048; 80053; 81003; 82330; 83605; 83690; 83735; 83970; 84100; 84145; 85025; 86480; 87040; 87389; 93005; 93306; 94667; 96360; 97161-GP; 99285-25; 99291; A9270-GY; J0630; J0692; J1650; J1940; J3475; J3480; J3489; J3490; J7030; Q9967